=== PATIENT | female | born 1975 | race Caucasian/White ===

== ENCOUNTER → 2021-03-07 09:44 | Outpatient (CLI) | payer OTHER, MEDICAID, SELFPAY ==
--- NOTE | 2021-03-07 | DI.US.S_ITS ---
PROCEDURE: US ABDOMEN LIMITED INDICATIONS: left lower quadrant pain TECHNIQUE: Real-time focused scanning was performed of the abdomen, with image documentation. COMPARISON: None. FINDINGS: Scan was performed at the areas of tenderness, as demonstrated by the patient. At these sites, no hernias can be seen, including with Valsalva maneuver. No significant abnormalities can be seen at the areas of clinical concern. IMPRESSION: Negative for hernia. Dictated by: Apolinar Bethea M.D. on 03/07/2021 at 10:58 Approved by: Apolinar Bethea M.D. on 03/07/2021 at 11:02
== END ==
PROVIDERS: PCP Physician Assistant Medical; Referring Provider Nurse Practitioner Family; Visit Provider Nurse Practitioner Family
DX: R10.32 Left lower quadrant pain (principal)
CPT/HCPCS: 76705

== ENCOUNTER → 2022-03-03 12:19 | Outpatient (CLI) | payer OTHER, MEDICAID, SELFPAY ==
--- NOTE | 2022-03-03 | DI.US.S_ITS ---
PROCEDURE: US THYROID INDICATIONS: Nontoxic diffuse goiter TECHNIQUE: Real-time scanning was performed of the thyroid gland, with image documentation. COMPARISON: [facility], US, US THYROID, 12/20/2020, 12:47. FINDINGS: Right: The right thyroid measures 5.1 x 1.7 x 1.8 cm. A right midpole nodule measuring 2.2 x 1.2 x 1.4 cm compared to 1.8 x 1.2 x 0.9 cm on the prior ultrasound. This nodule is solid, hypoechoic, wider than tall, with smooth margins and no echogenic foci. A right inferior pole nodule measuring 0.4 x 0.3 x 0.4 cm is unchanged compared to the prior ultrasound. This nodule is solid, hypoechoic, wider than tall, with smooth margins and no echogenic foci. Left: The left thyroid measures 4.9 x 1.4 x 1.3 cm Isthmus: 3 mm IMPRESSION: 1. TI-RADS 4 right midpole nodule is larger now measuring 2.2 x 1.2 x 1.4 cm. Recommend fine needle aspiration if not previously biopsy. 2. TI-RADS 4 right inferior pole nodule measuring 4 mm. Dictated by: Carlos A Dutton M.D. on 03/03/2022 at 14:29 Approved by: Carlos A Dutton M.D. on 03/03/2022 at 14:37
== END ==
PROVIDERS: PCP Nurse Practitioner Family; Referring Provider Nurse Practitioner Family; Visit Provider Nurse Practitioner Family
DX: E04.2 Nontoxic multinodular goiter (principal)
CPT/HCPCS: 76536

== ENCOUNTER → 2022-05-11 14:24 | Outpatient (CLI) | payer OTHER, MEDICAID, SELFPAY ==
--- NOTE | 2022-05-11 | DI.US.S_ITS ---
PROCEDURE: US SOFT TISSUE HEAD AND NECK INDICATIONS: Nontoxic single thyroid nodule TECHNIQUE: Real-time scanning was performed of the neck region of interest, with image documentation. COMPARISON: [facility], US, US THYROID, 12/20/2020, 12:47. [facility], US, US THYROID, 12/10/2019, 11:31. [facility], US, US THYROID, 03/03/2022, 12:30. FINDINGS: 2.2 x 1.2 x 1.4 centimeter solid nodule in the right lobe of the thyroid is stable compared to March 03, 2022. Patient declined ultrasound-guided fine-needle aspiration IMPRESSION: 1. 2.2 x 1.2 x 1.4 centimeter right thyroid nodule stable compared to March 03, 2022. 2. Patient declined ultrasound-guided fine-needle aspiration of the TI-RADS 4 nodule. Given patient declined biopsy of the nodule and the suspicious imaging findings nodule for be followed at short-term interval of 6-12 months to confirm stability. Dictated by: Tasha Lao MD, PhD on 05/11/2022 at 15:22 Approved by: Tasha Lao MD, PhD on 05/11/2022 at 15:27
== END ==
PROVIDERS: PCP Nurse Practitioner Family; Referring Provider Naturopath; Visit Provider Naturopath
DX: E04.1 Nontoxic single thyroid nodule (principal)
CPT/HCPCS: 76536

== ENCOUNTER → 2023-10-23 11:18 | Outpatient (CLI) | payer OTHER, MEDICAID, SELFPAY ==
--- NOTE | 2023-10-23 | DI.US.S_ITS ---
PROCEDURE: US THYROID INDICATIONS: FOLLOW UP THYROID NODULE TECHNIQUE: Real-time scanning was performed of the thyroid gland, with image documentation. COMPARISON: [facility], US, US THYROID, 03/03/2022, 12:30. FINDINGS: Right: Thyroid lobe measures 5.6 x 2.5 x 1.9 cm, and is homogeneous in echotexture. Left: Thyroid lobe measures 5.1 x 1.6 x 1.5 cm, and is homogenous in echotexture. Isthmus: 0.2 cm thick. Nodule number: 1 Location: Right mid thyroid Size: 2.7 x 1.9 x 1.5 cm. Previously measured 2.2 x 1.4 x 1.2 cm on the comparison ultrasound dated March 03, 2022 Composition: Predominantly solid Echogenicity: Hypoechoic Shape: wider than tall. Margins: Smooth Echogenic foci: None Total points: 4 ACR TI-RADS category: 4 Nodule number: 2 Location: Right superior thyroid Size: 0.8 x 0.7 x 0.6 cm. Composition: Predominantly solid Echogenicity: Hypoechoic Shape: wider than tall. Margins: Smooth Echogenic foci: Punctate Total points: 7 ACR TI-RADS category: 5 IMPRESSION: 1. Increased size of the right mid thyroid nodule when compared with the study dated March 03, 2022. Fine needle aspiration recommended if not previously biopsied. 2. Subcentimeter T5 lesion which is new when compared with the prior study. Annual sonographic follow-up recommended. 3. Previously visualized inferior right thyroid nodule no longer visualized. ACR TI-RADS definitions and recommendations: TI-RADS 1 (benign): 0 points. FNA not needed. TI-RADS 2 (not suspicious): 2 points. FNA not needed. TI-RADS 3 (mildly suspicious): 3 points. * FNA if 2.5 cm or larger, follow up if 1.5 cm or larger (at 1, 3, and 5 years). TI-RADS 4 (moderately suspicious): 4-6 points. * FNA if 1.5 cm or larger, follow up if 1 cm or larger (at 1, 2, 3, and 5 years). TI-RADS 5 (highly suspicious): 7 points or more. * FNA if 1 cm or larger, follow up if 0.5 cm or larger (every year for 5 years). Dictated by: Tonie Queen M.D. on 10/23/2023 at 13:42 Approved by: Tonie Queen M.D. on 10/23/2023 at 13:45
== END ==
PROVIDERS: PCP Nurse Practitioner Family; Referring Provider Naturopath; Visit Provider Naturopath
DX: E04.2 Nontoxic multinodular goiter (principal); M89.9 Disorder of bone, unspecified
CPT/HCPCS: 76536